=== PATIENT | male | born 1955 | race Caucasian/White ===

== ENCOUNTER → 2018-05-11 17:29 | Outpatient (CLI) | payer OTHER, MEDICAID, SELFPAY ==
[2018-05-11 17:38] LABS: Bacteria Urine None Seen; RBC Urine None Seen (0-5/HPF); WBC Urine None Seen (0-5/HPF)
[2018-05-11 18:09] LABS: Appearance Urine UA CLEAR; Bilirubin Urine UA NEGATIVE (NEGATIVE); Color Urine UA YELLOW; Glucose Urine UA NEGATIVE (Normal); Ketones Urine UA NEGATIVE (NEGATIVE); Leukocyte Esterase Urine UA NEGATIVE (NEGATIVE); Nitrite Urine UA NEGATIVE (Negative); Occult Blood Urine UA TRACE-LYSED (Negative); Protein Urine UA NEGATIVE (Negative); Urobilinogen Urine UA 0.2 E.U./dL (0.2); pH Urine UA 5.5 (4.5-8.0)
[2018-05-11 18:25] LABS: Amorphous Sediment Urine 1+; Culture Indicated Urine Cult Not Indicated
== END ==
PROVIDERS: PCP Physician Assistant; Visit Provider Physician Assistant
DX: R10.30 Lower abdominal pain, unspecified (principal); Z87.442 Personal history of urinary calculi
CPT/HCPCS: 81001

== ENCOUNTER → 2018-09-05 07:53 | Outpatient (CLI) | payer OTHER, MEDICAID, SELFPAY ==
[2018-09-05 09:27] LABS: Alanine Aminotransferase 27 IU/L (21-72); Albumin 4.2 g/dL (3.5-5.0); Albumin Globulin Ratio 1.6 (1.0-2.8); Alkaline Phosphatase 47 U/L (38-126); Aspartate Aminotransferase 21 IU/L (17-59); BUN Creatinine Ratio 22.5 (6-22); Bilirubin Total 0.5 mg/dL (0.2-1.3); Blood Urea Nitrogen 18 mg/dL (9-20); Calcium 9.3 mg/dL (8.4-10.2); Carbon Dioxide 26 mmol/L (22-32); Chloride 108 mmol/L (98-107); Cholesterol 177 mg/dL (140-199); Estimated Glomerular Filt Rate > 60.0 mL/min (>60); Globulin 2.6 g/dL (1.7-4.1); Glucose 96 mg/dL (80-110); HDL Cholesterol 39 mg/dL (40-60); HEMOLYSIS < 15 (0-50); LDL Cholesterol Calculated 121 mg/dL (<100); Sodium 142 mmol/L (137-145); Total Protein 6.8 g/dL (6.3-8.2); Triglycerides 85 mg/dL (35-150)
[2018-09-05 09:54] LABS: Prostate Specific Antigen Scrn 1.35 ng/mL (0.1-4.0)
[2018-09-05 10:02] LABS: Thyroid Stimulating Hormone 2.29 uIU/mL (0.47-4.68)
== END ==
PROVIDERS: PCP Physician Assistant; Visit Provider Internal Medicine Cardiovascular Disease
DX: I25.10 Atherosclerotic heart disease of native coronary artery without angina pectoris (principal); E78.00 Pure hypercholesterolemia, unspecified; R06.09 Other forms of dyspnea; R07.89 Other chest pain; Z12.5 Encounter for screening for malignant neoplasm of prostate
CPT/HCPCS: 36415; 80053; 80061; 84443; G0103

== ENCOUNTER → 2018-09-21 10:09 | Outpatient (CLI) | payer OTHER, MEDICAID, SELFPAY ==
[2018-09-23 19:02] LABS: Fecal Immunochemical Test DETECTED (NOT DETECTED)
== END ==
PROVIDERS: PCP Physician Assistant; Visit Provider Physician Assistant
DX: Z12.11 Encounter for screening for malignant neoplasm of colon (principal)
CPT/HCPCS: 82274

== ENCOUNTER 2018-09-29 08:30 | Outpatient (RCR) | payer OTHER, MEDICAID, SELFPAY | END 2018-10-03 10:29 | disposition home or self-care (01) | LOC: CAR 08:30 | PROVIDERS: PCP Physician Assistant; Visit Provider Internal Medicine Cardiovascular Disease | DX: Z95.5 Presence of coronary angioplasty implant and graft (principal) | CPT/HCPCS: 93798 ==

== ENCOUNTER → 2018-12-23 07:01 | Outpatient (CLI) | payer OTHER, MEDICAID, SELFPAY ==
[2018-12-23 08:36] LABS: Alanine Aminotransferase 19 IU/L (21-72); Albumin 4.4 g/dL (3.5-5.0); Albumin Globulin Ratio 1.6 (1.0-2.8); Alkaline Phosphatase 61 U/L (38-126); Aspartate Aminotransferase 24 IU/L (17-59); BUN Creatinine Ratio 25.6 (6-22); Blood Urea Nitrogen 23 mg/dL (9-20); Calcium 9.9 mg/dL (8.4-10.2); Carbon Dioxide 25 mmol/L (22-32); Chloride 105 mmol/L (98-107); Cholesterol 193 mg/dL (140-199); Estimated Glomerular Filt Rate > 60.0 mL/min (>60); Globulin 2.8 g/dL (1.7-4.1); Glucose 90 mg/dL (80-110); HDL Cholesterol 44 mg/dL (40-60); HEMOLYSIS < 15 (0-50); LDL Cholesterol Calculated 134 mg/dL (<100); Potassium 4.2 mmol/L (3.4-5.1); Sodium 139 mmol/L (137-145); Total Protein 7.2 g/dL (6.3-8.2); Triglycerides 73 mg/dL (35-150)
== END ==
PROVIDERS: Family Provider Physician Assistant; PCP Physician Assistant; Visit Provider Internal Medicine Cardiovascular Disease
DX: I25.10 Atherosclerotic heart disease of native coronary artery without angina pectoris (principal); E78.5 Hyperlipidemia, unspecified
CPT/HCPCS: 36415; 80053; 80061

== ENCOUNTER → 2019-03-27 08:36 | Outpatient (CLI) | payer OTHER, MEDICAID, SELFPAY ==
[2019-03-27 10:11] LABS: Alanine Aminotransferase 48 IU/L (21-72); Albumin 4.3 g/dL (3.5-5.0); Albumin Globulin Ratio 1.7 (1.0-2.8); Alkaline Phosphatase 44 U/L (38-126); Aspartate Aminotransferase 32 IU/L (17-59); BUN Creatinine Ratio 18.8 (6-22); Bilirubin Total 0.8 mg/dL (0.2-1.3); Blood Urea Nitrogen 15 mg/dL (9-20); Calcium 9.5 mg/dL (8.4-10.2); Carbon Dioxide 28 mmol/L (22-32); Chloride 105 mmol/L (98-107); Cholesterol 113 mg/dL (140-199); Estimated Glomerular Filt Rate > 60.0 mL/min (>60); Globulin 2.5 g/dL (1.7-4.1); Glucose 91 mg/dL (80-110); HDL Cholesterol 38 mg/dL (40-60); HEMOLYSIS < 15 (0-50); LDL Cholesterol Calculated 58 mg/dL (<100); Potassium 4.7 mmol/L (3.4-5.1); Sodium 142 mmol/L (137-145); Total Protein 6.8 g/dL (6.3-8.2); Triglycerides 85 mg/dL (35-150)
== END ==
PROVIDERS: Family Provider Physician Assistant; PCP Physician Assistant; Visit Provider Internal Medicine Cardiovascular Disease
DX: I25.10 Atherosclerotic heart disease of native coronary artery without angina pectoris (principal); E78.5 Hyperlipidemia, unspecified
CPT/HCPCS: 36415; 80053; 80061

== ENCOUNTER → 2019-07-12 14:50 | Outpatient (CLI) | payer OTHER, MEDICAID, SELFPAY ==
--- NOTE | 2019-07-12 | DI.US.S_ITS ---
PROCEDURE: US PERIPH LOW EXTREM LT INDICATIONS: CALF PAIN TECHNIQUE: Real-time imaging, as well as color and pulse Doppler interrogation, were performed of the lower extremity deep veins from the inguinal ligament to the popliteal fossa. COMPARISON: None. FINDINGS: The common femoral, femoral and popliteal veins are normally compressible, and free of intraluminal thrombus. Color and pulse Doppler demonstrate normal phasic intraluminal flow. There is normal augmentation response to distal compression maneuver. IMPRESSION: No deep venous thrombosis identified within the left lower extremity. Dictated by: Vineet Harper [facility] Interpreted: Arnaldo Childress MD on 07/12/2019 at 15:36 Approved by: Arnaldo Childress M.D. on 07/12/2019 at 17:06
== END ==
PROVIDERS: PCP Physician Assistant
DX: M79.662 Pain in left lower leg (principal)
CPT/HCPCS: 93971

== ENCOUNTER → 2019-11-28 06:57 | Outpatient (CLI) | payer OTHER, MEDICAID, SELFPAY ==
[2019-11-28 09:23] LABS: Alanine Aminotransferase 24 IU/L (<50); Albumin 4.4 g/dL (3.5-5.0); Albumin Globulin Ratio 1.8 (1.0-2.8); Alkaline Phosphatase 45 U/L (38-126); Aspartate Aminotransferase 29 IU/L (17-59); BUN Creatinine Ratio 25.6 (6-22); Bilirubin Total 0.5 mg/dL (0.2-1.3); Blood Urea Nitrogen 20 mg/dL (9-20); Calcium 9.7 mg/dL (8.4-10.2); Carbon Dioxide 24 mmol/L (22-32); Chloride 107 mmol/L (98-107); Estimated Glomerular Filt Rate > 60.0 mL/min (>60); Globulin 2.4 g/dL (1.7-4.1); Glucose 84 mg/dL (80-110); HEMOLYSIS < 15 (0-50); Potassium 4.2 mmol/L (3.4-5.1); Sodium 139 mmol/L (137-145); Total Protein 6.8 g/dL (6.3-8.2)
[2019-11-29 13:22] LABS: Cholesterol 110 mg/dL (140-199); HDL Cholesterol 38 mg/dL (40-60); LDL Cholesterol Calculated 57 mg/dL (<100); Triglycerides 75 mg/dL (35-150)
== END ==
PROVIDERS: PCP Physician Assistant; Referring Provider Internal Medicine Cardiovascular Disease; Visit Provider Internal Medicine Cardiovascular Disease
DX: I25.10 Atherosclerotic heart disease of native coronary artery without angina pectoris (principal); E78.00 Pure hypercholesterolemia, unspecified
CPT/HCPCS: 36415; 80053; 80061

== ENCOUNTER → 2020-06-03 08:02 | Outpatient (CLI) | payer MEDICARE, MEDICAID, SELFPAY ==
[2020-06-03 09:19] LABS: Alanine Aminotransferase 23 IU/L (<50); Albumin 3.9 g/dL (3.5-5.0); Albumin Globulin Ratio 1.3 (1.0-2.8); Alkaline Phosphatase 53 U/L (38-126); Aspartate Aminotransferase 26 IU/L (17-59); BUN Creatinine Ratio 24.5 (6-22); Bilirubin Total 0.5 mg/dL (0.2-1.3); Blood Urea Nitrogen 23 mg/dL (9-20); Calcium 9.3 mg/dL (8.4-10.2); Carbon Dioxide 28 mmol/L (22-32); Chloride 105 mmol/L (98-107); Cholesterol 193 mg/dL (140-199); Estimated Glomerular Filt Rate > 60.0 mL/min (>60); Globulin 2.9 g/dL (1.7-4.1); Glucose 97 mg/dL (80-110); HDL Cholesterol 45 mg/dL (40-60); HEMOLYSIS < 15 (0-50); LDL Cholesterol Calculated 129 mg/dL (<100); Potassium 4.4 mmol/L (3.4-5.1); Sodium 137 mmol/L (137-145); Total Protein 6.8 g/dL (6.3-8.2); Triglycerides 95 mg/dL (35-150)
== END ==
PROVIDERS: Referring Provider Internal Medicine Cardiovascular Disease; Visit Provider Internal Medicine Cardiovascular Disease
DX: I25.10 Atherosclerotic heart disease of native coronary artery without angina pectoris (principal)
CPT/HCPCS: 36415; 80053; 80061

== ENCOUNTER → 2021-01-23 07:57 | Outpatient (RCR) | payer OTHER, MEDICAID, SELFPAY ==
--- NOTE | 2019-07-12 13:50 | PT.OIE ---
Current Diagnoses Sciatica, left side (07/12/19) Past Medical History (Last Updated 05/05/18 @ 16:28 by Lori Rodriguez) Chicken pox (Resolved) Fractures (Resolved 1964) Kidney stones (Resolved ~2011) Measles (Resolved) Sleep apnea (Chronic ~2012) Past Surgical History (Last Updated 05/05/18 @ 16:28 by Lori Rodriguez) Anesthesia (Resolved) History of gastric surgery (Resolved 02/1980) History of left inguinal hernia repair (Resolved 03/16/17) History of shoulder surgery (Resolved 01/1972) Visit Care Team Role Provider Type Saloni Vasquez PA-C Attending Provider Advanced Laminating Machine Offbearer Primary Care Provider Referring Provider Specialty: Medical Address: [address] [place] [address], [address], [facility] Email: [email or web address] Physical Therapy Initial Evaluation PT-OP-A Visit Information Start: 07/12/19 17:05 Freq: Status: Active Protocol: Document 07/12/19 13:50 DLM (Rec: 07/12/19 17:07 DLM [id number]) Out-Patient Physical Therapy Visit Information Visit Information Visit Type Initial Evaluation Visit Start Time 13:50 Visit Stop Time 14:40 Total Visit Minutes 50 Visit Number 1 Number of ANIMAL TRAINER SUPERVISOR Visits 0 Evaluation Information Evaluation Date 07/12/19 Precautions Precautions cardiac PT-OP-B Current Condition Start: 07/12/19 17:05 Freq: Status: Active Protocol: Document 07/12/19 13:50 DLM (Rec: 07/12/19 18:24 DLM [id number]) Current Condition History of Current Condition Onset Date August 2018 Current Complaints His greatest complaint is pain in his distal left LE. History of Current Condition He developed pain in left distal LE while attending cardiac rehab between Jun and August 2018. He underwent cardiac stent placements x 6 in Jun 2018. Nothing has been able to resolve the pain. Numbness in toes started at the same time and gradually got worse. The pain wakes him up at night. The pain makes it hard to walk or stand. His physician changed his Statin meds but it did not resolve the pain. Prior Treatments and Tests professional healthcare representative did not help . Stretching at home does not resolve the pain. Left LE US is negative for DVT. Tried Arnica and CBD for his LE pain . Treatment Goals Patient/Caregiver Goals Resolve the pain in left LE. 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 Baseline Function- Recreation/Hobbies he is active, stationary bike at home, goes hunting Baseline Function- Other uses CPAP at night Current Functional Impairments (Reported) Functional Limitations- ADL's Independent, pain wakes him up at night Functional Limitations- Mobility/Gait Independent without device, the pain limits his standing and gait tolerance Functional Limitations- Work/School working normal schedule Functional Limitations- Recreation/ riding stationary bike 15 min Hobbies at a time, less active due to his left LE pain Personal Factors Other Personal Factors That May Effect he also c/o generalized Therapy/Recovery stiffness and decreased energy since getting cardiac stents PT-OP-C Subjective Start: 07/12/19 17:05 Freq: Status: Active Protocol: Document 07/12/19 13:50 DLM (Rec: 07/12/19 18:24 DL [id number]) OP-PT Subjective Patient Comments Patient Comments He is frustrated with his on- going pain OP-PT Pain Assessment Pain Assessment Grid Paper Pain Assessment Grid Completed No: offered to pt but he did not complete it Location Left Distal Leg Intensity 6 Scale Used Numeric (1 - 10) Description Aching,Sharp Frequency Constant Pain Aggravating Factors Standing,Walking Other Pain Aggravating Factors sleeping which is mostly in sidelying Pain Alleviating Factors Cold,Heat,Sitting Home Pain Medication Use Pain Medications Used No Pain Behaviors Pain Behaviors Restlessness PT-OP-F Manual Assessment Start: 07/12/19 17:05 Freq: Status: Active Protocol: Document 07/12/19 13:50 DLM (Rec: 07/12/19 18:24 DLM [id number]) Manual Assessments Soft Tissue Assessment Soft Tissue Mobility Assessment generalized tightness left low back and buttock area, tender along left side of sacrum Joint Mobility Assessment Joint Mobility Assessment decreased pelvic mobility Other Manual Assessments Other Manual Assessments Hamstring tightness with Left 40 degrees and right 65 degrees PT-OP-G Mobility & Gait Start: 07/12/19 17:05 Freq: Status: Active Protocol: Document 07/12/19 13:50 DLM (Rec: 07/12/19 18:24 DLM [id number]) OP Mobility Evaluation Bed Mobility Rolling Independent Supine to and from Sit Independent Transfers Sit to Stand Independent OP Gait Assessment Gait Gait Assistance Required: Independent Assistive Devices Assistive Device None PT-OP-J Posture/Palpation/Skin Start: 07/12/19 17:05 Freq: Status: Active Protocol: Document 07/12/19 13:50 DLM (Rec: 07/12/19 18:27 DLM [id number]) Posture Evaluation Position Standing Evaluation View Posterior Head/C-Spine Posture Forward Head L-Spine Posture Flattened,Flexed,Shifted Left Shoulder Posture (L) Rounded,(R) Rounded Comments Posture Comments pelvis rotated right in standing PT-OP-K Range of Motion Start: 07/12/19 17:05 Freq: Status: Active Protocol: Document 07/12/19 13:50 DLM (Rec: 07/12/19 18:24 DLM [id number]) Lumbar Spine Range of Motion Lumbar Spine Active Percentage Testing Position Standing Flexion 80 Extension 10 Rotation Left 25 Rotation Right 25 Lateral Flexion Left 75 Lateral Flexion Right 100 ROM Limitations Soft Tissue Tightness,Pain Comments Flexion he deviates right, pain moving to left with rotation and lateral flexion, describes pulling in left low back with flexion Hip Goniometric Range of Motion Hip ROM Limitations Comments Hip ROM is WFL, pain with seated hip flexion AROM PT-OP-L Special Tests Start: 07/12/19 17:05 Freq: Status: Active Protocol: Document 07/12/19 13:50 DLM (Rec: 07/12/19 18:24 DL [id number]) Special Tests Lumbar Spine Special Tests Standing Flexion Test Results negative Comments movement deviations noted, deviates right Prone Press Up Test Results resolved his left LE symptoms including toe numbness Straight Leg Raise Test Results increased pain left LE with testing, negative on right PT-OP-M Strength Start: 07/12/19 17:05 Freq: Status: Active Protocol: Document 07/12/19 13:50 DLM (Rec: 07/12/19 18:24 DLM [id number]) Hip Strength Hip Manual Muscle Testing Right Flexion (L2) 5 Normal Extension (S1) 5 Normal Abduction 5 Normal Adduction 5 Normal Left Flexion (L2) 3+ Fair+ Extension (S1) 5 Normal Abduction 4- Good- Adduction 5 Normal Reason Not Measured Pain Comments pain with resisted hip flexion and to a lesser degree with abduction Knee Strength Knee Manual Muscle Testing Right Flexion (S2) 5 Normal Extension (L3) 5 Normal Left Flexion (S2) 5 Normal Extension (L3) 5 Normal Ankle/Foot Strength Ankle and Foot Manual Muscle Testing Right Dorsiflexion (L4) 5 Normal Left Dorsiflexion (L4) 5 Normal Toe Strength Toe Manual Muscle Testing Right Great Toe Extension 5 Normal Left Great Toe Extension 5 Normal PT-OP-Q Treatments Start: 07/12/19 17:05 Freq: Status: Active Protocol: Document 07/12/19 13:50 DLM (Rec: 07/12/19 18:24 DLM [id number]) Therapeutic Exercises Supine Exercises Lower Trunk Rotation Side bilateral Reps/Minutes 3 reps Comments modified his home stretch to this Hip ER Stretch Supine Exercise Name Hooklying with ankle over knee Side bilateral Equipment Used modified home stretch to do this Reps/Minutes 3 reps each side Comments manual push down on knee Single Knee to Chest Side bilateral Reps/Minutes 3 reps each side Prone Exercises Prone Lying Resistance passive Comments his Left LE symptoms resolve in this position Self-Care/Home Management Treatment Education Patient Education Home Exercise Program,Pain Management Other Education pt reports his current HEP is quadruped opp UE/LE lifts, standing back stretches, supine trunk rotation stretches and arm lifts with 12#. He reports he was given stretches by the Chiropractor. PT-OP-T Assessment and Plan Start: 07/12/19 17:05 Freq: Status: Active Protocol: Document 07/12/19 13:50 DLM (Rec: 07/12/19 18:24 [facility] [id number]) Physical Therapy Assessment Rehab Potential Rehabilitation Potential Excellent Evaluation Complexity Number of Personal Factors/Comorbidities 1-2 Number of Body Systems Impaired 3 Clinical Presentation at Evaluation Evolving Impairments Impairments Activity Tolerance,Functional Activities,Pain,Posture,ROM, Sensation,Soft Tissue Mobility ,Strength Goals Three Impairment Increased pain with standing and walking Short Term Goal (STG) Tolerate standing for 10 min without increase pain STG Duration 3 weeks Security Expert Goal (LTG) Tolerate standing greater than 20 min without increased pain LTG Duration 6 weeks Two Impairment Decreased Strength Short Term Goal (STG) left hip flexion strength increase to 4/5 STG Duration 3 weeks Senior Living Goal (LTG) Left hip flexor and abduction strength to 5/5 LTG Duration 6 weeks One Impairment Pain left LE and numbness in toes Short Term Goal (STG) Decrease left radicular symptoms to intermittent STG Duration 2 weeks Senior Living Goal (LTG) Resolve left radicular symptoms LTG Duration 6 weeks Assessment Summary Assessment Roverto presents with left LE symptoms that appear radicular in nature. Able to resolve his LE symptoms in prone. Noted significant increase in his pain during standing ROM testing. He presents with soft tissue tightness and altered movement patterns that may be contributing to his pain. He has had these symptoms for about a year and was unable to resolve them with other treatments. This is his first time attending physical therapy for this condition. He is a good candidate for physical therapy to address the above identified deficits. Physical Therapy Plan Frequency and Duration Frequency of Treatment 2x/Week Duration of Treatment 6 weeks Plan of Care Start Date 07/12/19 Plan of Care End Date 10/10/19 Therapeutic Interventions Therapeutic Interventions Home Exercise Program,Joint Mobilizations,Manual Therapy, Patient/Caregiver Education, Self-Care/Home Management,Soft Tissue Mobilization, Therapeutic Activities, Therapeutic Exercises Modalities Cold Pack/Ice Massage,Electric Stimulation,Hot Packs, Traction- Mechanical, Ultrasound Next Visit Focus/Plan Next Note Type Treatment Note Next Visit Plan modify current HEP, add HS stretch, start manual therapy
--- NOTE | 2019-07-12 13:50 | PT.OPPOC ---
Addendum entered and electronically signed by Ingrid Lopez, PT 07/12/19 18:32: send for E-signature Original Note: Physical, Occupational & Speech Therapy At [facility] Current Diagnoses Sciatica, left side (07/12/19) Visit Care Team Role Provider Type Saloni Vasquez PA-C Attending Provider Advanced Farm Marketer Primary Care Provider Referring Provider Specialty: Medical Address: [address] [place] [address], [facility] [address], [place], [address] Email: [email or web address] Plan Of Care PT-OP-T Assessment and Plan Start: 07/12/19 17:05 Freq: Status: Active Protocol: Document 07/12/19 13:50 DLM (Rec: 07/12/19 18:24 DLM [id number]) Physical Therapy Assessment Rehab Potential Rehabilitation Potential Excellent Evaluation Complexity Number of Personal Factors/Comorbidities 1-2 Number of Body Systems Impaired 3 Clinical Presentation at Evaluation Evolving Impairments Impairments Activity Tolerance,Functional Activities,Pain,Posture,ROM, Sensation,Soft Tissue Mobility ,Strength Goals Three Impairment Increased pain with standing and walking Short Term Goal (STG) Tolerate standing for 10 min without increase pain STG Duration 3 weeks Physical Trainer Goal (LTG) Tolerate standing greater than 20 min without increased pain LTG Duration 6 weeks Two Impairment Decreased Strength Short Term Goal (STG) left hip flexion strength increase to 4/5 STG Duration 3 weeks Residential Goal (LTG) Left hip flexor and abduction strength to 5/5 LTG Duration 6 weeks One Impairment Pain left LE and numbness in toes Short Term Goal (STG) Decrease left radicular symptoms to intermittent STG Duration 2 weeks Physical Trainer Goal (LTG) Resolve left radicular symptoms LTG Duration 6 weeks Assessment Summary Assessment Roverto presents with left LE symptoms that appear radicular in nature. Able to resolve his LE symptoms in prone. Noted significant increase in his pain during standing ROM testing. He presents with soft tissue tightness and altered movement patterns that may be contributing to his pain. He has had these symptoms for about a year and was unable to resolve them with other treatments. This is his first time attending physical therapy for this condition. He is a good candidate for physical therapy to address the above identified deficits. Physical Therapy Plan Frequency and Duration Frequency of Treatment 2x/Week Duration of Treatment 6 weeks Plan of Care Start Date 07/12/19 Plan of Care End Date 10/10/19 Therapeutic Interventions Therapeutic Interventions Home Exercise Program,Joint Mobilizations,Manual Therapy, Patient/Caregiver Education, Self-Care/Home Management,Soft Tissue Mobilization, Therapeutic Activities, Therapeutic Exercises Modalities Cold Pack/Ice Massage,Electric Stimulation,Hot Packs, Traction- Mechanical, Ultrasound Next Visit Focus/Plan Next Note Type Treatment Note Next Visit Plan modify current HEP, add HS stretch, start manual therapy Plan of Care Dates Plan of Care Start Date 07/12/19 Plan of Care End Date 10/10/19 Electronically Signed by: Ingrid Lopez, PT 07/12/19 [id number] Please Sign and Return: I have reviewed this Plan of Care and certify that the skilled therapy services above are required to meet the patient?s needs. Physician Signature Date Printed Name and Credentials C
--- NOTE | 2019-07-19 09:45 | PT.OTN ---
Current Diagnoses Sciatica, left side (07/19/19) Physical Therapy Treatment Note PT-OP-A Visit Information Start: 07/12/19 17:05 Freq: Status: Active Protocol: Document 07/19/19 09:04 SP (Rec: 07/19/19 09:48 SP [id number]) Out-Patient Physical Therapy Visit Information Visit Information Visit Type Treatment Note Visit Start Time 09:04 Visit Stop Time 09:45 Total Visit Minutes 41 Visit Number 2 Number of STRINGED INSTRUMENT TUNER Visits 1 PT-OP-B Current Condition Start: 07/12/19 17:05 Freq: Status: Active Protocol: Document 07/12/19 13:50 DLM (Rec: 07/12/19 18:24 DLM [id number]) Current Condition History of Current Condition Onset Date August 2018 Current Complaints His greatest complaint is pain in his distal left LE. History of Current Condition He developed pain in left distal LE while attending cardiac rehab between Jun and August 2018. He underwent cardiac stent placements x 6 in Jun 2018. Nothing has been able to resolve the pain. Numbness in toes started at the same time and gradually got worse. The pain wakes him up at night. The pain makes it hard to walk or stand. His physician changed his Statin meds but it did not resolve the pain. Prior Treatments and Tests long term acute care registered nurse did not help . Stretching at home does not resolve the pain. Left LE US is negative for DVT. Tried Arnica and CBD for his LE pain . Treatment Goals Patient/Caregiver Goals Resolve the pain in left LE. 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 Baseline Function- Recreation/Hobbies he is active, stationary bike at home, goes hunting Baseline Function- Other uses CPAP at night Current Functional Impairments (Reported) Functional Limitations- ADL's Independent, pain wakes him up at night Functional Limitations- Mobility/Gait Independent without device, the pain limits his standing and gait tolerance Functional Limitations- Work/School working normal schedule Functional Limitations- Recreation/ riding stationary bike 15 min Hobbies at a time, less active due to his left LE pain Personal Factors Other Personal Factors That May Effect he also c/o generalized Therapy/Recovery stiffness and decreased energy since getting cardiac stents PT-OP-C Subjective Start: 07/12/19 17:05 Freq: Status: Active Protocol: Document 07/19/19 09:04 SP (Rec: 07/19/19 09:48 SP [id number]) OP-PT Subjective Patient Comments Patient Comments Pt states ongoing pain L leg pain from LS posterolateral to Lateral L calf and middle toes 6-7/10 pain pre PT. No changes or concerns since last tx. PT-OP-F Manual Assessment Start: 07/12/19 17:05 Freq: Status: Active Protocol: Document 07/12/19 13:50 DLM (Rec: 07/12/19 18:24 DLM [id number]) Manual Assessments Soft Tissue Assessment Soft Tissue Mobility Assessment generalized tightness left low back and buttock area, tender along left side of sacrum Joint Mobility Assessment Joint Mobility Assessment decreased pelvic mobility Other Manual Assessments Other Manual Assessments Hamstring tightness with Left 40 degrees and right 65 degrees PT-OP-G Mobility & Gait Start: 07/12/19 17:05 Freq: Status: Active Protocol: Document 07/12/19 13:50 DLM (Rec: 07/12/19 18:24 DLM [id number]) OP Mobility Evaluation Bed Mobility Rolling Independent Supine to and from Sit Independent Transfers Sit to Stand Independent OP Gait Assessment Gait Gait Assistance Required: Independent Assistive Devices Assistive Device None PT-OP-J Posture/Palpation/Skin Start: 07/12/19 17:05 Freq: Status: Active Protocol: Document 07/12/19 13:50 DLM (Rec: 07/12/19 18:27 DLM [id number]) Posture Evaluation Position Standing Evaluation View Posterior Head/C-Spine Posture Forward Head L-Spine Posture Flattened,Flexed,Shifted Left Shoulder Posture (L) Rounded,(R) Rounded Comments Posture Comments pelvis rotated right in standing PT-OP-K Range of Motion Start: 07/12/19 17:05 Freq: Status: Active Protocol: Document 07/12/19 13:50 DLM (Rec: 07/12/19 18:24 DLM [id number]) Lumbar Spine Range of Motion Lumbar Spine Active Percentage Testing Position Standing Flexion 80 Extension 10 Rotation Left 25 Rotation Right 25 Lateral Flexion Left 75 Lateral Flexion Right 100 ROM Limitations Soft Tissue Tightness,Pain Comments Flexion he deviates right, pain moving to left with rotation and lateral flexion, describes pulling in left low back with flexion Hip Goniometric Range of Motion Hip ROM Limitations Comments Hip ROM is WFL, pain with seated hip flexion AROM PT-OP-L Special Tests Start: 07/12/19 17:05 Freq: Status: Active Protocol: Document 07/12/19 13:50 DLM (Rec: 07/12/19 18:24 DLM [id number]) Special Tests Lumbar Spine Special Tests Standing Flexion Test Results negative Comments movement deviations noted, deviates right Prone Press Up Test Results resolved his left LE symptoms including toe numbness Straight Leg Raise Test Results increased pain left LE with testing, negative on right PT-OP-M Strength Start: 07/12/19 17:05 Freq: Status: Active Protocol: Document 07/12/19 13:50 DLM (Rec: 07/12/19 18:24 DLM [id number]) Hip Strength Hip Manual Muscle Testing Right Flexion (L2) 5 Normal Extension (S1) 5 Normal Abduction 5 Normal Adduction 5 Normal Left Flexion (L2) 3+ Fair+ Extension (S1) 5 Normal Abduction 4- Good- Adduction 5 Normal Reason Not Measured Pain Comments pain with resisted hip flexion and to a lesser degree with abduction Knee Strength Knee Manual Muscle Testing Right Flexion (S2) 5 Normal Extension (L3) 5 Normal Left Flexion (S2) 5 Normal Extension (L3) 5 Normal Ankle/Foot Strength Ankle and Foot Manual Muscle Testing Right Dorsiflexion (L4) 5 Normal Left Dorsiflexion (L4) 5 Normal Toe Strength Toe Manual Muscle Testing Right Great Toe Extension 5 Normal Left Great Toe Extension 5 Normal PT-OP-Q Treatments Start: 07/12/19 17:05 Freq: Status: Active Protocol: Document 07/19/19 09:04 SP (Rec: 07/19/19 09:48 SP [id number]) Therapeutic Exercises Supine Exercises clamshell Supine Exercise Name hooklying, add HEP Side bilateral Reps/Minutes 2x10 Comments cued PPT transvere ed Supine Exercise Name add HEP Reps/Minutes 10 sec x10 karimi bridge Supine Exercise Name add HEP Reps/Minutes 2x10 Comments cued PPT core march Supine Exercise Name add HEP Reps/Minutes 2x5 Comments cued PPT Lower Trunk Rotation Side bilateral Reps/Minutes 3 reps Comments modified his home stretch to this Hip ER Stretch Supine Exercise Name Hooklying with ankle over knee Side bilateral Equipment Used modified home stretch to do this Reps/Minutes 3 reps each side Comments manual push down on knee Single Knee to Chest Side bilateral Reps/Minutes 3 reps each side Sitting Exercises hip Er stretch Sitting Exercise Name add HEP Reps/Minutes 30: x3 Standing Exercises calf stretch Standing Exercise Name LE propped up on step with DF and EV (peroneals) Reps/Minutes 30 x2 Other Exercises self STMs Other Exercise Name ball roll LB muscles at wall, long sitting calf over tennis ball PT-OP-T Assessment and Plan Start: 07/12/19 17:05 Freq: Status: Active Protocol: Document 07/19/19 09:04 SP (Rec: 07/19/19 09:48 SP [id number]) Physical Therapy Assessment Goals Three Impairment Increased pain with standing and walking Short Term Goal (STG) Tolerate standing for 10 min without increase pain STG Duration 3 weeks Lotteries Agent Goal (LTG) Tolerate standing greater than 20 min without increased pain LTG Duration 6 weeks Two Impairment Decreased Strength Short Term Goal (STG) left hip flexion strength increase to 4/5 STG Duration 3 weeks Mcc Goal (LTG) Left hip flexor and abduction strength to 5/5 LTG Duration 6 weeks One Impairment Pain left LE and numbness in toes Short Term Goal (STG) Decrease left radicular symptoms to intermittent STG Duration 2 weeks Mcc Goal (LTG) Resolve left radicular symptoms LTG Duration 6 weeks Assessment Summary Assessment Pt tolerated tx well, no significant change in pain but stated core and stretching helpful. Cued for awareness of PPT with trans ab facilitation during exercises for proper form. Physical Therapy Plan Frequency and Duration Frequency of Treatment 2x/Week Duration of Treatment 6 weeks Plan of Care Start Date 07/09/19 Plan of Care End Date 10/10/19 Therapeutic Interventions Therapeutic Interventions Home Exercise Program,Joint Mobilizations,Manual Therapy, Patient/Caregiver Education, Self-Care/Home Management,Soft Tissue Mobilization, Therapeutic Activities, Therapeutic Exercises Modalities Cold Pack/Ice Massage,Electric Stimulation,Hot Packs, Traction- Mechanical, Ultrasound Next Visit Focus/Plan Next Note Type Treatment Note Next Visit Plan Assess core ex next tx and incorporate past/modify current HEP quadruped, add standing band walk, resisted pull downs and sciatic/ peroneal nerve stretch HS stretch Continue add: per PT POC: add HS stretch, start manual therapy
--- NOTE | 2019-07-24 08:19 | PT.OTN ---
Current Diagnoses Sciatica, left side (07/24/19) Physical Therapy Treatment Note PT-OP-A Visit Information Start: 07/12/19 17:05 Freq: Status: Active Protocol: Document 07/24/19 07:34 SP (Rec: 07/24/19 08:46 SP [id number]) Out-Patient Physical Therapy Visit Information Visit Information Visit Type Treatment Note Visit Start Time 07:35 Visit Stop Time 08:19 Total Visit Minutes 44 Visit Number 3 Number of EXERCISE EQUIPMENT REPAIR TECHNICIAN Visits 2 PT-OP-B Current Condition Start: 07/12/19 17:05 Freq: Status: Active Protocol: Document 07/12/19 13:50 DLM (Rec: 07/12/19 18:24 DLM [id number]) Current Condition History of Current Condition Onset Date August 2018 Current Complaints His greatest complaint is pain in his distal left LE. History of Current Condition He developed pain in left distal LE while attending cardiac rehab between Jun and August 2018. He underwent cardiac stent placements x 6 in Jun 2018. Nothing has been able to resolve the pain. Numbness in toes started at the same time and gradually got worse. The pain wakes him up at night. The pain makes it hard to walk or stand. His physician changed his Statin meds but it did not resolve the pain. Prior Treatments and Tests cardiac care unit nurse did not help . Stretching at home does not resolve the pain. Left LE US is negative for DVT. Tried Arnica and CBD for his LE pain . Treatment Goals Patient/Caregiver Goals Resolve the pain in left LE. 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 Baseline Function- Recreation/Hobbies he is active, stationary bike at home, goes hunting Baseline Function- Other uses CPAP at night Current Functional Impairments (Reported) Functional Limitations- ADL's Independent, pain wakes him up at night Functional Limitations- Mobility/Gait Independent without device, the pain limits his standing and gait tolerance Functional Limitations- Work/School working normal schedule Functional Limitations- Recreation/ riding stationary bike 15 min Hobbies at a time, less active due to his left LE pain Personal Factors Other Personal Factors That May Effect he also c/o generalized Therapy/Recovery stiffness and decreased energy since getting cardiac stents PT-OP-C Subjective Start: 07/12/19 17:05 Freq: Status: Active Protocol: Document 07/24/19 07:34 SP (Rec: 07/24/19 08:46 SP [id number]) OP-PT Subjective Patient Comments Patient Comments Pt states he is sore from working on house projects and standing is the most difficult activity. He completed his HEP once. He had pain that woke him last night. PT-OP-F Manual Assessment Start: 07/12/19 17:05 Freq: Status: Active Protocol: Document 07/12/19 13:50 DLM (Rec: 07/12/19 18:24 DLM [id number]) Manual Assessments Soft Tissue Assessment Soft Tissue Mobility Assessment generalized tightness left low back and buttock area, tender along left side of sacrum Joint Mobility Assessment Joint Mobility Assessment decreased pelvic mobility Other Manual Assessments Other Manual Assessments Hamstring tightness with Left 40 degrees and right 65 degrees PT-OP-G Mobility & Gait Start: 07/12/19 17:05 Freq: Status: Active Protocol: Document 07/12/19 13:50 DLM (Rec: 07/12/19 18:24 DLM [id number]) OP Mobility Evaluation Bed Mobility Rolling Independent Supine to and from Sit Independent Transfers Sit to Stand Independent OP Gait Assessment Gait Gait Assistance Required: Independent Assistive Devices Assistive Device None PT-OP-J Posture/Palpation/Skin Start: 07/12/19 17:05 Freq: Status: Active Protocol: Document 07/12/19 13:50 DLM (Rec: 07/12/19 18:27 DLM [id number]) Posture Evaluation Position Standing Evaluation View Posterior Head/C-Spine Posture Forward Head L-Spine Posture Flattened,Flexed,Shifted Left Shoulder Posture (L) Rounded,(R) Rounded Comments Posture Comments pelvis rotated right in standing PT-OP-K Range of Motion Start: 07/12/19 17:05 Freq: Status: Active Protocol: Document 07/12/19 13:50 DLM (Rec: 07/12/19 18:24 DLM [id number]) Lumbar Spine Range of Motion Lumbar Spine Active Percentage Testing Position Standing Flexion 80 Extension 10 Rotation Left 25 Rotation Right 25 Lateral Flexion Left 75 Lateral Flexion Right 100 ROM Limitations Soft Tissue Tightness,Pain Comments Flexion he deviates right, pain moving to left with rotation and lateral flexion, describes pulling in left low back with flexion Hip Goniometric Range of Motion Hip ROM Limitations Comments Hip ROM is WFL, pain with seated hip flexion AROM PT-OP-L Special Tests Start: 07/12/19 17:05 Freq: Status: Active Protocol: Document 07/12/19 13:50 DLM (Rec: 07/12/19 18:24 DLM [id number]) Special Tests Lumbar Spine Special Tests Standing Flexion Test Results negative Comments movement deviations noted, deviates right Prone Press Up Test Results resolved his left LE symptoms including toe numbness Straight Leg Raise Test Results increased pain left LE with testing, negative on right PT-OP-M Strength Start: 07/12/19 17:05 Freq: Status: Active Protocol: Document 07/12/19 13:50 DLM (Rec: 07/12/19 18:24 DLM [id number]) Hip Strength Hip Manual Muscle Testing Right Flexion (L2) 5 Normal Extension (S1) 5 Normal Abduction 5 Normal Adduction 5 Normal Left Flexion (L2) 3+ Fair+ Extension (S1) 5 Normal Abduction 4- Good- Adduction 5 Normal Reason Not Measured Pain Comments pain with resisted hip flexion and to a lesser degree with abduction Knee Strength Knee Manual Muscle Testing Right Flexion (S2) 5 Normal Extension (L3) 5 Normal Left Flexion (S2) 5 Normal Extension (L3) 5 Normal Ankle/Foot Strength Ankle and Foot Manual Muscle Testing Right Dorsiflexion (L4) 5 Normal Left Dorsiflexion (L4) 5 Normal Toe Strength Toe Manual Muscle Testing Right Great Toe Extension 5 Normal Left Great Toe Extension 5 Normal PT-OP-Q Treatments Start: 07/12/19 17:05 Freq: Status: Active Protocol: Document 07/24/19 07:34 SP (Rec: 07/24/19 08:46 SP [id number]) Therapeutic Exercises Supine Exercises peroneal nerve glide Side bilateral Reps/Minutes 10 core march Reps/Minutes 2x5 Comments cued PPT Lower Trunk Rotation Side bilateral Reps/Minutes 5 R andL Comments hold 30 stretch R and L, then core slow pace rotation Single Knee to Chest Side bilateral Reps/Minutes 3 reps each side Sitting Exercises retro reclined pull down Equipment Used TB #3 Reps/Minutes 2x10 Comments cued chest lift, PPT awareness stick roll: peroneal, tibialis anterior, calf Reps/Minutes 1 m in Standing Exercises trunk flexion against wall Standing Exercise Name Jimenez curl Equipment Used 10 lb dumbbell BUE Reps/Minutes 5 Comments add HEP Peroneal Stretch Standing Exercise Name add HEP Side bilateral Reps/Minutes 30 sec hold Other Exercises cat camel Reps/Minutes x10 bird dog Reps/Minutes x5 Comments Add HEP mechanics lifting box Reps/Minutes x5 self STMs Other Exercise Name ball roll LB muscles at wall, long sitting calf over tennis ball PT-OP-T Assessment and Plan Start: 07/12/19 17:05 Freq: Status: Active Protocol: Document 07/24/19 07:34 SP (Rec: 07/24/19 08:46 SP [id number]) Physical Therapy Assessment Goals Three Impairment Increased pain with standing and walking Short Term Goal (STG) Tolerate standing for 10 min without increase pain STG Duration 3 weeks [facility] Goal (LTG) Tolerate standing greater than 20 min without increased pain LTG Duration 6 weeks Two Impairment Decreased Strength Short Term Goal (STG) left hip flexion strength increase to 4/5 STG Duration 3 weeks [employer] Goal (LTG) Left hip flexor and abduction strength to 5/5 LTG Duration 6 weeks One Impairment Pain left LE and numbness in toes Short Term Goal (STG) Decrease left radicular symptoms to intermittent STG Duration 2 weeks [facility] Goal (LTG) Resolve left radicular symptoms LTG Duration 6 weeks Assessment Summary Assessment Pt responded well to HEP review and added standing jimenez curl, recline core shdl ext Tb, Peroneal stretch and glide and bird dog today. Pt's LBP and L and R peroneal pain start when ever standing activity start which is alot over weekend working on pull nails at home. He stated did only one day of HEPs. EXERCISE EQUIPMENT REPAIR TECHNICIAN encouraged compliant at home important for LB strengthening and progression outside of PT as well, verbal understanding. Physical Therapy Plan Frequency and Duration Frequency of Treatment 2x/Week Duration of Treatment 6 weeks Plan of Care Start Date 07/09/19 Plan of Care End Date 10/10/19 Therapeutic Interventions Therapeutic Interventions Home Exercise Program,Joint Mobilizations,Manual Therapy, Patient/Caregiver Education, Self-Care/Home Management,Soft Tissue Mobilization, Therapeutic Activities, Therapeutic Exercises Modalities Cold Pack/Ice Massage,Electric Stimulation,Hot Packs, Traction- Mechanical, Ultrasound Next Visit Focus/Plan Next Note Type Treatment Note Next Visit Plan Assess added see assessment exercises to HEP. Continue seated, supine, quadruped responded well to than stnading. Continue add: per PT POC: add HS stretch, start manual therapy
--- NOTE | 2021-01-21 13:35 | PT.OPDS ---
Current Diagnoses Sciatica, left side (07/24/19) Visit Care Team Role Provider Type Saloni Vasquez PA-C Attending Provider Advanced Facetor Primary Care Provider Referring Provider Specialty: Medical Address: [facility], [address] [place] [address], [id number] Email: [email or web address] Visit Number Visit Number 3 Discharge Summary PT-OP-B Current Condition Start: 07/12/19 17:05 Freq: Status: Active Protocol: Document 07/12/19 13:50 DLM (Rec: 07/12/19 18:24 DLM [id number]) Current Condition History of Current Condition Onset Date August 2018 Current Complaints His greatest complaint is pain in his distal left LE. History of Current Condition He developed pain in left distal LE while attending cardiac rehab between Jun and August 2018. He underwent cardiac stent placements x 6 in Jun 2018. Nothing has been able to resolve the pain. Numbness in toes started at the same time and gradually got worse. The pain wakes him up at night. The pain makes it hard to walk or stand. His physician changed his Statin meds but it did not resolve the pain. Prior Treatments and Tests career center director did not help . Stretching at home does not resolve the pain. Left LE US is negative for DVT. Tried Arnica and CBD for his LE pain . Treatment Goals Patient/Caregiver Goals Resolve the pain in left LE. 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 Baseline Function- Recreation/Hobbies he is active, stationary bike at home, goes hunting Baseline Function- Other uses CPAP at night Current Functional Impairments (Reported) Functional Limitations- ADL's Independent, pain wakes him up at night Functional Limitations- Mobility/Gait Independent without device, the pain limits his standing and gait tolerance Functional Limitations- Work/School working normal schedule Functional Limitations- Recreation/ riding stationary bike 15 min Hobbies at a time, less active due to his left LE pain Personal Factors Other Personal Factors That May Effect he also c/o generalized Therapy/Recovery stiffness and decreased energy since getting cardiac stents PT-OP-C Subjective Start: 07/12/19 17:05 Freq: Status: Active Protocol: Document 07/24/19 07:34 SP (Rec: 07/24/19 08:46 SP [id number]) OP-PT Subjective Patient Comments Patient Comments Pt states he is sore from working on house projects and standing is the most difficult activity. He completed his HEP once. He had pain that woke him last night. PT-OP-F Manual Assessment Start: 07/12/19 17:05 Freq: Status: Active Protocol: Document 07/12/19 13:50 DLM (Rec: 07/12/19 18:24 DLM [id number]) Manual Assessments Soft Tissue Assessment Soft Tissue Mobility Assessment generalized tightness left low back and buttock area, tender along left side of sacrum Joint Mobility Assessment Joint Mobility Assessment decreased pelvic mobility Other Manual Assessments Other Manual Assessments Hamstring tightness with Left 40 degrees and right 65 degrees PT-OP-G Mobility & Gait Start: 07/12/19 17:05 Freq: Status: Active Protocol: Document 07/12/19 13:50 DLM (Rec: 07/12/19 18:24 DLM [id number]) OP Mobility Evaluation Bed Mobility Rolling Independent Supine to and from Sit Independent Transfers Sit to Stand Independent OP Gait Assessment Gait Gait Assistance Required: Independent Assistive Devices Assistive Device None PT-OP-J Posture/Palpation/Skin Start: 07/12/19 17:05 Freq: Status: Active Protocol: Document 07/12/19 13:50 DLM (Rec: 07/12/19 18:27 DLM [id number]) Posture Evaluation Position Standing Evaluation View Posterior Head/C-Spine Posture Forward Head L-Spine Posture Flattened,Flexed,Shifted Left Shoulder Posture (L) Rounded,(R) Rounded Comments Posture Comments pelvis rotated right in standing PT-OP-K Range of Motion Start: 07/12/19 17:05 Freq: Status: Active Protocol: Document 07/12/19 13:50 DLM (Rec: 07/12/19 18:24 DLM [id number]) Lumbar Spine Range of Motion Lumbar Spine Active Percentage Testing Position Standing Flexion 80 Extension 10 Rotation Left 25 Rotation Right 25 Lateral Flexion Left 75 Lateral Flexion Right 100 ROM Limitations Soft Tissue Tightness,Pain Comments Flexion he deviates right, pain moving to left with rotation and lateral flexion, describes pulling in left low back with flexion Hip Goniometric Range of Motion Hip ROM Limitations Comments Hip ROM is WFL, pain with seated hip flexion AROM PT-OP-L Special Tests Start: 07/12/19 17:05 Freq: Status: Active Protocol: Document 07/12/19 13:50 DLM (Rec: 07/12/19 18:24 DLM [id number]) Special Tests Lumbar Spine Special Tests Standing Flexion Test Results negative Comments movement deviations noted, deviates right Prone Press Up Test Results resolved his left LE symptoms including toe numbness Straight Leg Raise Test Results increased pain left LE with testing, negative on right PT-OP-M Strength Start: 07/12/19 17:05 Freq: Status: Active Protocol: Document 07/12/19 13:50 DLM (Rec: 07/12/19 18:24 DLM [id number]) Hip Strength Hip Manual Muscle Testing Right Flexion (L2) 5 Normal Extension (S1) 5 Normal Abduction 5 Normal Adduction 5 Normal Left Flexion (L2) 3+ Fair+ Extension (S1) 5 Normal Abduction 4- Good- Adduction 5 Normal Reason Not Measured Pain Comments pain with resisted hip flexion and to a lesser degree with abduction Knee Strength Knee Manual Muscle Testing Right Flexion (S2) 5 Normal Extension (L3) 5 Normal Left Flexion (S2) 5 Normal Extension (L3) 5 Normal Ankle/Foot Strength Ankle and Foot Manual Muscle Testing Right Dorsiflexion (L4) 5 Normal Left Dorsiflexion (L4) 5 Normal Toe Strength Toe Manual Muscle Testing Right Great Toe Extension 5 Normal Left Great Toe Extension 5 Normal PT-OP-T Assessment and Plan Start: 07/12/19 17:05 Freq: Status: Active Protocol: Document 01/21/21 13:34 AW (Rec: 01/21/21 13:34 AW [id number]) Physical Therapy Plan Discharge Physical Therapy Discharge Reasons No Longer Attending PT Discharge Comments Pt has not been seen in therapy since July 2019. Late discharge.
== END ==
LOC: PHYS 07-12 13:33
PROVIDERS: PCP Physician Assistant; Referring Provider Physician Assistant; Visit Provider Physician Assistant
DX: M54.32 Sciatica, left side (principal)
CPT/HCPCS: 97110; 97162

== ENCOUNTER 2023-02-22 08:30 | Outpatient (RCR) | payer MEDICARE, SELFPAY | END 2023-02-22 10:30 | LOC: CAR 08:30 | PROVIDERS: Referring Provider Internal Medicine Cardiovascular Disease; Visit Provider Internal Medicine Cardiovascular Disease | DX: I25.10 Atherosclerotic heart disease of native coronary artery without angina pectoris (principal); I21.4 Non-ST elevation (NSTEMI) myocardial infarction | CPT/HCPCS: 93798 ==

== ENCOUNTER 2023-10-10 10:46 | Emergency (ER) | payer MEDICARE, SELFPAY ==
[2023-10-10 10:54] VITALS: BP 155/82; PULSE 75; RESP 18; TEMP 36.8; O2SAT 97; BMI 31.1
--- NOTE | 2023-10-10 10:55 | ED.EYEPROB ---
HPI - Eye Problem <Yves Mcgowan PA-C - Last Filed: 10/10/23 12:07> General Chief complaint: Eye Problems Stated complaint: something in eye Time Seen by Provider: 10/10/23 10:54 History of Present Illness HPI Narrative: This is a 67-year-old male presents to the emergency department due to a possible foreign body to the left eye. He states that 2 days ago he was using a blow torch to burn off a some caterpillar webbings from a tree when he states that some of the burned brush from the treatment fell in his left eye. He denies any visual changes but states that it feels irritated. Denies any fevers, nausea, vomiting, or other systemic symptoms. Denies any visible foreign bodies. Related Data Home Medications Medication Instructions Recorded Confirmed carvedilol 6.25 mg tablet 6.25 mg PO BID 06/21/18 05/02/19 nitroglycerin 0.3 mg sublingual 0.3 mg sublingual Q5-15M PRN 06/21/18 05/02/19 tablet aspirin 81 mg tablet,delayed 81 mg PO DAILY 09/26/18 05/02/19 release (Adult Low Dose Aspirin) ticagrelor 90 mg tablet 90 mg PO BID 09/26/18 05/02/19 C Pap inhalation 05/02/19 05/02/19 CoQ10 PO 05/02/19 05/02/19 ezetimibe 10 mg tablet 10 mg PO DAILY 05/02/19 05/02/19 losartan 25 mg tablet 25 mg PO DAILY 05/02/19 05/02/19 rosuvastatin 40 mg tablet 40 mg PO DAILY 05/02/19 05/02/19 Allergies Allergy/AdvReac Type Severity Reaction Status Date / Time No Known Allergies Allergy Uncoded 10/10/23 11:04 Review of Systems <Yves Mcgowan PA-C - Last Filed: 10/10/23 12:07> Review of Systems Narrative: GENERAL: Denies chills, fatigue, malaise, fever, sweats. HEENT: Left eye irritation, Denies sinus pain, ear pain, sore throat, difficulty swallowing, dizziness. RESPIRATORY: Denies dyspnea, cough, wheezing, hemoptysis, sputum. CARDIOVASCULAR: Denies chest pain, palpitations, orthopnea, edema, GASTROINTESTINAL: Denies nausea, vomiting, abdominal pain, diarrhea, constipation, melena. : Denies dysuria, frequency, incontinence, hematuria, urinary retention. MUSCULOSKELETAL: denies weakness, joint pain, or bony pain SKIN: Denies rash, skin lesions, or other NEUROLOGIC: Denies weakness, headache, numbness, change in speech, confusion, seizures, incoordination. PSYCHIATRIC: No concerning psychosocial issues. 12 point review of systems is negative except for those stated above Patient History <Yves Mcgowan PA-C - Last Filed: 10/10/23 12:07> Medical History (Updated 10/10/23 @ 12:07 by Yves Mcgowan PA-C) Chicken pox Fractures (1964) Measles Sleep apnea (~2012) Kidney stones (~2011) Surgical History (Updated 06/21/18 @ 13:36 by Saloni Vasquez PA-C) Anesthesia History of gastric surgery (02/1980) History of shoulder surgery (01/1972) History of left inguinal hernia repair (03/16/17) Family History (Updated 05/05/18 @ 16:24 by Lori Rodriguez) Father Heart attack Heart disease Mother Kidney failure Diabetes mellitus Rheumatoid arthritis Brother Pacemaker Mental health problem Sister No problems noted. Sister Heart disease Sister No problems noted. Grandfather Accident Grandmother Heart disease Grandfather Stroke Grandmother Melanoma Social History Smoking Status: Former smoker Tobacco: How many years used: 35 second hand exposure: No alcohol intake: never substance use type: does not use Smoking Status: Former smoker Exam <Yves Mcgowan PA-C - Last Filed: 10/10/23 12:07> Narrative Exam Narrative: GENERAL: Well-developed patient, in mild distress. HEAD: Atraumatic. Normocephalic. EYES: Pupils equal round and reactive. Extraocular motions intact. No significant erythema or purulent drainage coming from the eye. No evidence of any abrasions or ulcerations with fluorescein staining of the left eye. Underneath the left eyelid there was noted to be a small speck of a foreign body which was removed without complications. ENT: Nose without bleeding, purulent drainage. Throat without erythema, tonsillar hypertrophy or exudate. Airway patent. NECK: Trachea midline. Non tender EXTREMITIES: No edema or joint tenderness. NEURO: AOx3. SKIN: No rash or erythema of visible areas Initial Vital Signs Initial Vital Signs: Vital Signs Temperature 98.2 F 10/10/23 10:54 Pulse Rate 75 10/10/23 10:54 Respiratory Rate 18 10/10/23 10:54 Blood Pressure 155/82 H 10/10/23 10:54 Pulse Oximetry 97 10/10/23 10:54 Oxygen Delivery Method Room Air 10/10/23 10:54 <Autumn Lo DO - Last Filed: 10/10/23 15:41> Initial Vital Signs Initial Vital Signs: Vital Signs Temperature 98.2 F 10/10/23 10:54 Pulse Rate 75 10/10/23 10:54 Respiratory Rate 18 10/10/23 10:54 Blood Pressure 155/82 H 10/10/23 10:54 Pulse Oximetry 97 10/10/23 10:54 Oxygen Delivery Method Room Air 10/10/23 10:54 Course <Yves Mcgowan PA-C - Last Filed: 10/10/23 12:07> Orders Ordered: Discontinued Medications Proparacaine HCl (Proparacaine 0.5% Ophth Allie) 1 drops EYE-LEFT NOW ONE Stop: 10/10/23 11:19 Last Admin: 10/10/23 11:37 Dose: 1 drop Documented By: CONNIE Vital Signs Vital signs: Vital Signs - 8 hr 10/10/23 10:54 Temperature 98.2 F Pulse Rate 75 Respiratory Rate 18 Blood Pressure 155/82 H Pulse Oximetry 97 Oxygen Delivery Method Room Air <Autumn Lo DO - Last Filed: 10/10/23 15:41> Orders Ordered: Discontinued Medications Proparacaine HCl (Proparacaine 0.5% Ophth Allie) 1 drops EYE-LEFT NOW ONE Stop: 10/10/23 11:19 Last Admin: 10/10/23 11:37 Dose: 1 drop Documented By: CONNIE Vital Signs Vital signs: Vital Signs - 8 hr 10/10/23 10:54 Temperature 98.2 F Pulse Rate 75 Respiratory Rate 18 Blood Pressure 155/82 H Pulse Oximetry 97 Oxygen Delivery Method Room Air MDM - Eye Problem <Yves Mcgowan PA-C - Last Filed: 10/10/23 12:07> MDM Narrative Medical decision making narrative: ED course: This is a 67-year-old male presents to the emergency department due to possible foreign bodies in the left eye. Patient is are was fluorescein stained which did not show any abrasions or ulcerations. It was extensively irrigated and a very small foreign body was removed from underneath the left eyelid. There was no evidence of any infection or purulent drainage or erythema surrounding the eye. CC: Left eye foreign body Complicating co-morbidities: None Data collected from: Previous notes Medical records reviewed: Patient was not been to this emergency department in the past. Differential considered, but not limited to: Eye foreign body, corneal abrasion, ulceration Exam documented above, pertinent findings include: Very small foreign body noted underneath the left eyelid which was removed Lab Test results independently reviewed as above. Pertinent findings: None obtained Imaging studies independently reviewed: None obtained Scores Used: None MIPS Elements: None Consultations: None Treatments: Eye irrigation Re-evaluations: None Discussion: Discussed plan with the patient was comfortable with the plan Diagnosis: Left eye foreign body Disposition: see below, along with detailed discharge instructions that have been reviewed with patient as well as indications for ED re-evaluation and additional outpatient follow up Discharge Plan Departure Patient Disposition: Home Clinical Impression: Eye foreign body Activity Restrictions/Additional Instructions: Thank you for coming to the [facility] Emergency Department today. I am glad that we are able to remove the foreign body that was underneath the left eyelid. You should start to feel better. If your eye begins to develop any significant redness or purulent drainage you may go to primary care doctor or walk-in clinic for antibiotic eyedrops. Please return to the emergency department if you develop any significant vision loss, pain, fevers, or any other concerning signs or symptoms. I hope you feel better soon. Please follow up with your primary care provider within a week if your symptoms continue. If you do not have a primary care provider please contact the [facility] Resource line at [phone]. They will ask some questions about your medical history and help you get set up with a provider in the community. Prescriptions: No Action carvedilol 6.25 mg tablet 6.25 mg PO BID nitroglycerin 0.3 mg tablet, sublingual 0.3 mg SL Q5-15M PRN aspirin [Adult Low Dose Aspirin] 81 mg tablet,delayed release (DR/EC) 81 mg PO DAILY ticagrelor 90 mg tablet 90 mg PO BID rosuvastatin 40 mg tablet 40 mg PO DAILY CoQ10 PO Patient Comments: 400 mg am losartan 25 mg tablet 25 mg PO DAILY ezetimibe 10 mg tablet 10 mg PO DAILY C Pap inhalation Stand Alone Forms: Patient Portal/API ED Sign-out <Autumn Lo DO - Last Filed: 10/10/23 15:41> Cosign ED Attending Cosignature Attestation: I was available for consultation.
--- NOTE | 2023-10-10 10:59 | PC.NURSE ---
Pt states he feels he got ashes/sut in his eyes from blowtorching catepillars in the tree. States he has been washing his eyes out with water and putting eye drops in eyes. Pt left eye blurry per pt; irritated and red.
[2023-10-10] MEDS: PROPARACAINE 0.5% OPHTH SOL 1 DROPS EYE-LEFT (11:37)
== END 2023-10-10 12:21 | disposition home or self-care (01) ==
PROVIDERS: Emergency Provider Physician Assistant Medical
DX: T15.92XA Foreign body on external eye, part unspecified, left eye, initial encounter (principal); W44.F9XA Other object of natural or organic material, entering into or through a natural orifice, initial encounter
CPT/HCPCS: 99282